=== PATIENT | male | born 1980 | race Hispanic/Latino ===

== ENCOUNTER 2017-03-01 17:16 | Emergency (ER) | payer OTHER ==
[2017-03-01 17:41] VITALS: BP 130/86; PULSE 100; RESP 16; TEMP 98.1; O2SAT 100
--- NOTE | 2017-03-01 18:13 | C.PDOC ---
History Of Present Illness Pt is a pleasant 36 yr old male who is complaining of pain to the bottom of his gums for 4 days. Patient recently had oral surgery work and his oral surgeon says he may develop pain from these procedures (3 total). No fever. Pain is a 7-8 on a 1 to 10 scale. Pt has an appointment to see his oral surgeon this Friday. PMD: Dr. Giron . Time Seen by Provider: 03/01/17 17:54 Chief Complaint (Nursing): Dental Pain History Per: Patient History/Exam Limitations: no limitations Past Medical History Reviewed: Historical Data, Nursing Documentation, Vital Signs Vital Signs: Last Vital Signs Temp 98.1 F 03/01/17 17:38 Pulse 100 H 03/01/17 17:38 Resp 16 03/01/17 17:38 BP 130/86 03/01/17 17:38 Pulse Ox 100 03/01/17 18:20 - Medical History PMH: Asthma, Hyperthyroidism, Kidney Stones Surgical History: Back Surgery (2 years ago) - [facility] Procedures INJECT/INFUSE NEC (05/08/05) Family History: States: Unknown Family Hx - Social History Hx Tobacco Use: Yes Hx Alcohol Use: No Hx Substance Use: No - Immunization History Hx Tetanus Toxoid Vaccination: Yes Hx Influenza Vaccination: Yes Hx Pneumococcal Vaccination: Yes Review Of Systems Constitutional: Negative for: Fever Gastrointestinal: Negative for: Nausea, Vomiting Physical Exam - Physical Exam Appears: Well, Non-toxic, No Acute Distress Skin: Normal Color, Warm, Dry Head: Atraumatic Eye(s): bilateral: Normal Inspection, EOMI Ear(s): Bilateral: Normal Nose: Normal Oral Mucosa: Moist Tongue: Normal Appearing Lips: Normal Appearing Gingiva: Other (pt is adentulous lower jaw; gums with some redness but do not appear infected; (+) tenderness of lower gums) Throat: Normal Neck: Normal Cardiovascular: Rhythm Regular, Rhythm Irregular Respiratory: Normal Breath Sounds, No Rales, No Rhonchi, No Wheezing Extremity: Bilateral: Atraumatic Neurological/Psych: Oriented x3, Normal Speech ED Course And Treatment O2 Sat by Pulse Oximetry: 100 Medical Decision Making Medical Decision Making: Initial Impression: Acute Gum Pain s/p dental procedure Initial Plan: Will give viscous lidocaine. Will d/c home on pain medication. He has an appointment on Friday. I will give 4 days of pain medication so he has enough to last until . Disposition Counseled Patient/Family Regarding: Diagnosis, Need For Followup, Rx Given - Disposition Disposition: HOME/ ROUTINE Disposition Time: 18:09 Condition: STABLE Additional Instructions: Mr. Mcmullen, thank you for letting us take care of you today. Return to the ER if your symptoms worsen, or if any problems. Take the medication(s) listed below as prescribed. Follow up with your oral surgeon next week for a re-evaluation. Prescriptions: oxyCODONE/Acetaminophen [Percocet 5/325 mg Tab] 1 tab PO QID PRN #16 tab PRN Reason: Pain Forms: General Discharge Instructions Print Language: SWEDISH - POA Present On Arrival: None - Clinical Impression Clinical Impression: Pain in gums
== END 2017-03-01 18:22 | disposition home or self-care (01) ==
LOC: C.ER 17:16
DX: K06.8 Other specified disorders of gingiva and edentulous alveolar ridge (principal)

== ENCOUNTER 2017-12-31 22:13 | Emergency (ER) | payer OTHER ==
[2017-12-31 22:21] VITALS: TEMP 98.1; O2SAT 98
[2017-12-31 22:31] VITALS: BP 135/100; PULSE 124; RESP 14
[2017-12-31] MEDS ORDERED: Sodium Chloride 0.9% 1,000 ML IV ONE ×2 (22:31→23:39)
--- NOTE | 2017-12-31 22:31 | C.PDOC ---
History Of Present Illness as per his brother, he heard some grunting and found the patient shaking"stiff body and foaming at the mouth" He turned him on a side and called 911. Pt has no recollection of the event. Does not appears to be post ictal. No f/c/n/v. No trauma Time Seen by Provider: 12/31/17 22:30 Chief Complaint (Nursing): Seizure History Per: Family History/Exam Limitations: no limitations Recent Seizure Activity Began: Just Before Arrival Number Of Seizures: One Length Of Seizures (Duration): Seconds Quality Of Seizure: Generalized Precipitating Factor(s): Other Post-ictal Period: Yes Severity: Moderate Pain Scale Rating Of: 0 Recent travel outside of the [place]: No Additional History Per: Family Past Medical History Reviewed: Historical Data, Nursing Documentation, Vital Signs Vital Signs: Last Vital Signs Temp 98.1 F 12/31/17 22:16 Pulse 124 H 12/31/17 22:25 Resp 14 12/31/17 22:25 BP 135/100 H 12/31/17 22:25 Pulse Ox 98 12/31/17 23:10 - Medical History PMH: Anxiety, Asthma, Hyperthyroidism, Hypothyroidism, Kidney Stones Surgical History: Back Surgery (2 years ago) - [email or web address] Procedures INJECT/INFUSE NEC (05/08/05) Family History: States: No Known Family Hx - Social History Hx Tobacco Use: Yes Hx Alcohol Use: Yes Hx Substance Use: Yes (weed) - Immunization History Hx Tetanus Toxoid Vaccination: No Hx Influenza Vaccination: No Hx Pneumococcal Vaccination: No Review Of Systems Constitutional: Negative for: Fever, Chills Eyes: Negative for: Redness ENT: Negative for: Throat Pain Cardiovascular: Negative for: Chest Pain Respiratory: Negative for: Shortness of Breath Gastrointestinal: Negative for: Nausea, Vomiting, Abdominal Pain Genitourinary: Negative for: Dysuria Musculoskeletal: Negative for: Back Pain Skin: Negative for: Rash Neurological: Positive for: Seizures Psych: Negative for: Anxiety Physical Exam - Physical Exam Appears: Non-toxic Skin: Warm, Dry Head: Normacephalic Eye(s): bilateral: Normal Inspection Oral Mucosa: Moist Neck: Supple Chest: Symmetrical Cardiovascular: Rhythm Regular Respiratory: No Rales, No Rhonchi, No Wheezing Gastrointestinal/Abdominal: Soft, No Tenderness, No Distention Back: Normal Inspection Extremity: Normal ROM Extremity: Bilateral: Atraumatic Pulses: Left Dorsalis Pedis: Normal, Right Dorsalis Pedis: Normal Neurological/Psych: Oriented x3, Normal Speech, Normal Cognition Gait: Steady ED Course And Treatment - Laboratory Results Result Diagrams: 12/31/17 22:37 12/31/17 22:37 ECG: Interpreted By Me, Viewed By Me ECG Rhythm: Sinus Tachycardia (128), Nonspecific Changes O2 Sat by Pulse Oximetry: 98 Pulse Ox Interpretation: Normal - Radiology CXR: Interpreted by Me, Viewed By Me Progress Note: pt now states that he missed a few doses of his ativan. and he will fill in his prescriptons on friday Reevaluation Time: 03:55 Reassessment Condition: Improved Critical Care Time - Critical Care Note Total Time (in mins): 30 Documented critical care: time excludes all time spent performing seperately billable procedures. Disposition Counseled Patient/Family Regarding: Studies Performed, Diagnosis, Need For Followup, Rx Given - Disposition Referrals: Pawel Giron MD [Staff Provider] - Disposition: HOME/ ROUTINE Disposition Time: 22:30 Condition: FAIR Prescriptions: LORazepam [Ativan] 1 mg PO TID #3 tab Instructions: Seizures, Adult (DC) Forms: [facility] ([employer]) - Clinical Impression Clinical Impression: Withdrawal seizures
[2017-12-31] MEDS ORDERED: Sodium Chloride 0.9% 1,000 ML ONE (22:39)
[2017-12-31 22:42] LABS: BASO # 0.1 K/uL (0.0-0.2); BASO % 0.7 % (0.0-2.0); EOS # 0.1 K/uL (0.0-0.7); EOS % 0.9 % (0.0-4.0); LYMPH # 4.4 K/uL (1.0-4.3); LYMPH % 31.9 % (20.0-40.0); MEAN CELL VOLUME 85.9 fL (80.0-94.0); MEAN CORPUSCULAR HGB CONC 32.6 g/dL (33.0-37.0); MEAN PLATELET VOLUME 7.3 fL (7.2-11.7); MONO # 1.3 K/uL (0.0-0.8); MONO % 9.1 % (0.0-10.0); NEUT % 57.4 % (50.0-75.0); NRBC % 0.2 % (0.0-2.0); RBC 6.31 Mil/uL (4.40-5.90); RED CELL DISTRIBUTION WIDTH 14.9 % (11.5-14.5); WHITE BLOOD COUNT 13.9 K/uL (4.8-10.8)
[2017-12-31 22:49] LABS: HEMOGLOBIN 17.7 g/dL (12.0-18.0)
[2017-12-31 22:59] LABS: ALB/GLOB RATIO 1.3 (1.0-2.1); ALBUMIN 5.4 g/dL (3.5-5.0); GFR AFRICAN-AMERICAN > 60; GFR NON-AFRICAN AMERICAN > 60
[2017-12-31 23:05] LABS: ALT/SGPT 48 U/L (21-72); AST/SGOT 24 U/L (17-59); BLOOD UREA NITROGEN 17 mg/dL (9-20)
[2018-01-01 00:10] LABS: PROLACTIN 23.5 ng/mL (3.7-17.9)
[2018-01-01] MEDS ORDERED: Sodium Chloride 0.9% 1,000 ML ONE (00:38)
[2018-01-01 03:06] LABS: GRANULAR CAST 4 /lpf (0-1); SPERM URINE RARE /hpf; SQUAMOUS EPITHIAL 1 /hpf (0-5); URINE BACTERIA OCC (<OCC); URINE BILIRUBIN NEGATIVE (NEGATIVE); URINE BLOOD NEGATIVE (NEGATIVE); URINE CLARITY Hazy (Clear); URINE COLOR Yellow (YELLOW); URINE GLUCOSE (UA) NORMAL (Normal); URINE LEUKOCYTE ESTERASE NEG Leu/uL (Negative); URINE PROTEIN 1+ mg/dL (NEGATIVE)
[2018-01-01 03:07] LABS: BARBITURATES, UR NEGATIVE (NEGATIVE); BENZODIAZEPINES, UR NEGATIVE (NEGATIVE); OPIATES, UR NEGATIVE (NEGATIVE); PHENCYCLIDINE, UR NEGATIVE (NEGATIVE)
--- NOTE | 2018-01-01 08:32 | CT ---
Date of service: 12/31/2017 PROCEDURE: CT HEAD WITHOUT CONTRAST. HISTORY: seizure COMPARISON: None available. TECHNIQUE: Axial computed tomography images were obtained through the head/brain without intravenous contrast. Radiation dose: Total exam DLP = 819 mGy-cm. This CT exam was performed using one or more of the following dose reduction techniques: Automated exposure control, adjustment of the mA and/or kV according to patient size, and/or use of iterative reconstruction technique. FINDINGS: HEMORRHAGE: No intracranial hemorrhage. BRAIN: Mild atrophy. VENTRICLES: Unremarkable. No hydrocephalus. CALVARIUM: Unremarkable. PARANASAL SINUSES: Unremarkable as visualized. No significant inflammatory changes. MASTOID AIR CELLS: Unremarkable as visualized. No inflammatory changes. OTHER FINDINGS: None. IMPRESSION: No acute intracranial abnormality. If symptoms persists, consider MRI. These findings were preliminarily reported at 11:05 p.m. on 12/31/[address] Enrike Garza from [facility].
--- NOTE | 2018-01-01 11:14 | RAD ---
Date of service: 12/31/2017 PROCEDURE: CHEST RADIOGRAPH, 1 VIEW HISTORY: Seizure COMPARISON: Chest radiograph dated 12/31/2012. FINDINGS: LUNGS: Clear. PLEURA: No pneumothorax or pleural fluid seen. CARDIOVASCULAR: Cardiomediastinal silhouette within normal limits. OSSEOUS STRUCTURES: Unremarkable. VISUALIZED UPPER ABDOMEN: Normal. OTHER FINDINGS: None. IMPRESSION: No active disease.
--- NOTE | 2018-01-02 12:06 | CARD ---
APPROVED REPORT Date of service: 12/31/2017 EKG Measurement Heart [id number] <Conclusion> Sinus tachycardia baseline artifact Borderline ECG
== END 2018-01-01 04:08 | disposition home or self-care (01) ==
LOC: C.ER 22:13
DX: F19.939 Other psychoactive substance use, unspecified with withdrawal, unspecified (principal); R56.9 Unspecified convulsions
CPT/HCPCS: 70450; 71045; 80053; 80320; 80324; 80345; 80346; 80349; 80353; 80358; 80361; 81001; 82948; 83992; 84146; 84443; 85025; 93005; 96360; 99285; J7030